=== PATIENT | male | born 1950 | race Caucasian/White ===

== ENCOUNTER → 2017-03-17 | Outpatient (CLI) | payer OTHER ==
[~2017-03-17] MED LIST: ANEXSIA 7.5/3251 TA1 PO; FENOFIBRATE160 MG PO; LOSARTAN POTASS25 MG PO; MOTRIN400 M1 PO; MULTI-VITAMIN1 TAB; PRILOSEC40 MG PO; PROTONIX; RENAVIT TABLET0.8 MG PO; ROBAXIN 750750 M1 PO; VICODIN 5/500 T1 TAB; VIT B-12
[2017-03-17 16:05] LABS: BASOPHIL# 0.1 X10e3 (0-0.3); BASOPHIL% 0.8 % (0-2.5); EOSINOPHIL# 0.2 X10e3 (0-0.7); EOSINOPHIL% 2.9 % (0.0-7.0); HEMATOCRIT 44.8 % (38.0-50.0); LYMPHOCYTE# 2.9 X10e3 (1.0-3.5); LYMPHOCYTE% 39.3 % (17.0-45.0); MEAN CELL VOLUME 86.2 FL (83-96); MEAN CORPUSCULAR HEMOGLOBIN 28.8 PG (28-34); MEAN CORPUSCULAR HGB CONC 33.4 g/dL (30-36); MEAN PLATELET VOLUME 8.1 FL (6.5-11.5); MONOCYTE# 0.5 X10e3 (0-1.0); MONOCYTE% 7.5 % (3.0-12.0); NEUTROPHIL# 3.6 X10e3 (1.5-7.1); NEUTROPHIL% 49.5 % (40-75); PLATELET COUNT 246 X10e3 (140-420); RED BLOOD COUNT 5.19 X10e (3.90-5.60); RED CELL DISTRIBUTION WIDTH 14.2 % (11.0-15.5); WHITE BLOOD COUNT 7.3 X10e3 (4.0-10.5)
[2017-03-17 16:08] LABS: DIFF IND NO
[2017-03-17 16:10] LABS: BUN/CREATININE RATIO 14.5; CALCIUM SERUM 8.6 mg/dL (8.4-10.2); GLOM FILT RATE Estimated 33.1 mL/min (>60); PHOSPHOROUS 4.5 mg/dL (2.5-4.6)
[2017-03-17 16:15] LABS: URINE APPEARANCE CLEAR; URINE BILIRUBIN NEG (NEG); URINE BLOOD TRACE-INTACT (NEG); URINE COLOR YELLOW; URINE GLUCOSE NEG (NORM); URINE KETONE NEG (NEG); URINE LEUKOCYTE ESTERASE NEG (NEG); URINE NITRATE NEG (NEG); URINE PROTEIN 2+ (NEG); URINE UROBILINOGEN 0.2 MG/DL (NORM)
[2017-03-17 16:18] LABS: MICRO INDICATED? YES
[2017-03-17 16:47] LABS: URINE BACTERIA NEG (NEG); URINE GRANULAR CAST 0-2 /[HPF]; URINE HYALINE CAST 0-2 /[HPF]; URINE SQUAMOUS EPITHELIAL CELL FEW /[HPF]; URINE WHITE BLOOD CELL CAST 0-2 /[HPF]
[2017-03-23 10:37] LABS: CALCIUM (PTHINTACT) 9.2 mg/dL (8.6-10.3)
== END | disposition home or self-care (01) ==
LOC: SLAB 15:32
PROVIDERS: Internal Medicine Nephrology
DX: N18.3 Chronic kidney disease, stage 3 (moderate) (principal); E55.9 Vitamin D deficiency, unspecified
CPT/HCPCS: 36415; 80048; 81003; 82306; 82310; 83970; 84100; 85025